=== PATIENT | male | born 1965 | race Caucasian/White ===

== ENCOUNTER 2020-12-06 14:11 | Emergency (ER) | payer BC ==
[2020-12-06 14:42] VITALS: BMI 31.9
[2020-12-06 16:37] LABS: POTASSIUM 4.5 mmol/L (3.5-5.1)
[2020-12-06 16:39] LABS: ALBUMIN 3.4 g/dl (3.4-5.0); BLOOD UREA NITROGEN 15.5 mg/dL (7-18); CALCIUM 9.3 mg/dL (8.5-10.1)
[2020-12-06 16:43] LABS: CREATININE 0.7 mg/dL (0.55-1.3)
[2020-12-06 16:44] LABS: BILIRUBIN,TOTAL 0.5 mg/dL (0.2-1); TOT PROT 7.6 g/dl (6.4-8.2)
[2020-12-06 17:34] VITALS: BP 120/84; PULSE 92; TEMP 98.6
== END 2020-12-06 17:34 | disposition home or self-care (01) ==
LOC: JER 14:11
DX: R04.2 Hemoptysis (principal)
CPT/HCPCS: 36415; 71045-TC-FY; 80053; 85379; 93005; 93010; 99285-25